=== PATIENT | female | born 1990 | race American Indian/Alaskan Native ===

== ENCOUNTER 2021-06-20 03:23 | Emergency (ER) | payer SELFPAY | END 2021-06-20 05:00 | disposition left against medical advice (07) | LOC: ED 03:23 | DX: R10.9 Unspecified abdominal pain (principal); Z53.21 Procedure and treatment not carried out due to patient leaving prior to being seen by health care provider ==

== ENCOUNTER 2021-07-18 05:53 | Emergency (ER) | payer SELFPAY ==
[2021-07-18 06:08] VITALS: BP 134/84
--- NOTE | 2021-07-18 09:01 | XRay Report ---
CHEST 2 VIEWS INDICATION / CLINICAL INFORMATION: shortness of breath. COMPARISON: None available. FINDINGS: SUPPORT DEVICES: None. HEART / MEDIASTINUM: No significant abnormality. LUNGS / PLEURA: No significant pulmonary or pleural abnormality. No pneumothorax. ADDITIONAL FINDINGS: No significant additional findings. IMPRESSION: 1. No acute findings. Signer Name: Sharif Parisi DO Signed: 07/18/2021 8:57 AM Workstation Name: [id number]
--- NOTE | 2021-07-18 09:07 | Emergency Department Report ---
- General Chief Complaint: Upper Respiratory Infection Stated Complaint: LT SHOULDER/CHEST PAIN x1 DAY Source: patient Mode of arrival: Ambulatory Limitations: No Limitations - History of Present Illness Initial Comments: 28-year-old female presents to the ED with cough, shortness of breath, body ache x5 days. Patient states that she tested positive for COVID on Monday. Patient states she has been taking Tylenol 1 g [id number] for fever relief. Patient denies any chest pain or abdominal pain at present. Patient denies any headache nausea vomiting or blurry vision at present. Patient is alert and oriented x3. No acute distress noted. No ill appearance noted. MD Complaint: cough, nasal congestion Onset/Timin -: days(s) Severity: mild, moderate Severity scale (0 -10): 5 Quality: aching Consistency: intermittent Improves With: nothing Worsens With: nothing Associated Symptoms: denies other symptoms - Related Data Previous Rx's Medication Instructions Recorded Last Taken Type Ibuprofen [Motrin] 800 mg PO Q8HR PRN 15 Days #30 07/18/21 Unknown Rx tablet Allergies Allergy/AdvReac Type Severity Reaction Status Date / Time No Known Allergies Allergy Verified 07/18/21 06:10 ED Review of Systems ROS: Stated complaint: LT SHOULDER/CHEST PAIN x1 DAY Other details as noted in HPI Constitutional: denies: chills, fever Eyes: denies: eye pain, eye discharge, vision change ENT: denies: ear pain, throat pain Respiratory: cough, SOB with exertion. denies: shortness of breath, wheezing Cardiovascular: denies: chest pain, palpitations Endocrine: no symptoms reported Gastrointestinal: denies: abdominal pain, nausea, diarrhea Genitourinary: denies: urgency, dysuria, discharge Musculoskeletal: denies: back pain, joint swelling, arthralgia Skin: denies: rash, lesions Neurological: denies: headache, weakness, paresthesias Psychiatric: denies: anxiety, depression Hematological/Lymphatic: denies: easy bleeding, easy bruising ED Past Medical Hx - Medications Home Medications: Home Medications Medication Instructions Recorded Confirmed Last Taken Type Ibuprofen [Motrin] 800 mg PO Q8HR PRN 15 Days #30 07/18/21 Unknown Rx tablet ED Physical Exam - General Limitations: No Limitations General appearance: alert, in no apparent distress - Head Head exam: Present: atraumatic, normocephalic - Eye Eye exam: Present: normal appearance - ENT ENT exam: Present: mucous membranes moist - Neck Neck exam: Present: normal inspection - Respiratory Respiratory exam: Present: normal lung sounds bilaterally. Absent: respiratory distress - Cardiovascular Cardiovascular Exam: Present: regular rate, normal rhythm. Absent: systolic murmur, diastolic murmur, rubs, gallop - GI/Abdominal GI/Abdominal exam: Present: soft, normal bowel sounds - Extremities Exam Extremities exam: Present: normal inspection - Back Exam Back exam: Present: normal inspection - Neurological Exam Neurological exam: Present: alert, oriented X3 - Psychiatric Psychiatric exam: Present: normal affect, normal mood - Skin Skin exam: Present: warm, dry, intact, normal color. Absent: rash ED Course Vital Signs 07/18/21 07/18/21 07/18/21 06:01 07:43 10:00 Temperature 97.6 F Pulse Rate 96 H 96 H Respiratory 18 18 18 Rate Blood Pressure 134/84 Blood Pressure 134/84 [Right] O2 Sat by Pulse 100 99 100 Oximetry ED Medical Decision Making - EKG Data EKG shows normal: sinus rhythm - EKG Data Interpretation: nonspecific ST-T wave flor - Radiology Data [facility] [address] [place] [address] XRay Report Signed Patient: CARLOS MORTON MR#: [id number] : 08/31/1992 Acct:[id number] Age/Sex: 28 / F ADM Date: 07/18/21 Loc: ED Attending Dr: Ordering Physician: OCTAVIO BOLES Date of Service: 07/18/21 Procedure(s): XR chest routine 2V Accession Number(s): [id number] cc: OCTAVIO BOLES Fluoro Time In Minutes: CHEST 2 VIEWS INDICATION / CLINICAL INFORMATION: shortness of breath. COMPARISON: None available. FINDINGS: SUPPORT DEVICES: None. HEART / MEDIASTINUM: No significant abnormality. LUNGS / PLEURA: No significant pulmonary or pleural abnormality. No pneumothorax. ADDITIONAL FINDINGS: No significant additional findings. IMPRESSION: 1. No acute findings. Signer Name: Sharif Parisi DO Signed: 07/18/2021 8:57 AM Workstation Name: [id number] Transcribed By: LIZANDRO Dictated By: SHARIF PARISI DO Electronically Authenticated By: SHARIF PARISI DO Signed Date/Time: 07/18/21856 DD/ 5 TD/TT: - Medical Decision Making 28-year-old female presents to the ED with cough, shortness of breath, body ache x5 days. Patient states that she tested positive for COVID on Monday. Patient states she has been taking Tylenol 1 g [id number] for fever relief. Patient denies any chest pain or abdominal pain at present. Patient denies any headache nausea vomiting or blurry vision at present. Patient is alert and oriented x3. No acute distress noted. No ill appearance noted. Physical examination is unremarkable. CT 2 view show no abnormality. Patient has a walking O2 sat of 98%. Rechecked the patient is resting quietly quietly and comfortable and feeling better. I discussed the results of diagnostic study, my clinical impression and the plan for further treatment with the patient. Patient agrees with plan and discharge at this present time. All question addressed. I have given the patient instruction regarding a diagnosis ,expectation ,follow- up and return precaution. I explained to the patient that emergent condition may arise and to return to the ED for new worsen and any new persisting condition. I have explained the importance of following up with the primary care physician or referral physician listed below has instructed. The patient verbalized understanding of discharge instruction. Critical care attestation.: If time is entered above; I have spent that time in minutes in the direct care of this critically ill patient, excluding procedure time. ED Disposition Clinical Impression: COVID-19 Disposition: HOME / SELF CARE / HOMELESS Is pt being admited?: No Does the pt Need Aspirin: No Condition: Stable Instructions: COVID-19 Frequently Asked Questions, COVID-19: How to Protect Yourself and Others - CDC, Prevent the Spread of COVID-19 if You Are Sick - CDC Additional Instructions: Return to the ED for any worsening symptom Take medication as prescribed Drink plenty of fluids and stay hydrated Prescriptions: Ibuprofen [Motrin] 800 mg PO Q8HR PRN 15 Days #30 tablet PRN Reason: Pain, Moderate (4-6) Referrals: PRIMARY CARE, [Primary Care Provider] - 3-5 Days [facility] [Provider Group] - 3-5 Days Forms: Work/School Release Form(ED)
--- NOTE | 2021-07-18 14:06 | Electrocardiograph Report ---
[facility] Test Date: 2021-07-18 Test Time: 06:06:09 Pat Name: CARLOS MORTON Department: Room: Gender: F Designer/Writer: MARIA T : 1992-08-31 Requested By: ED DOC Order Number: [id number] Reading MD: Josey Michael Measurements Intervals Mason Rate: 82 P: 77 AK: 144 QRS: 68 QRSD: 96 T: 27 QT: 385 QTc: 450 Interpretive Statements Sinus rhythm Probable left atrial enlargement No previous ECG available for comparison Electronically Signed On 07-18-2021 14:06:23 EDT by Josey Michael
== END 2021-07-18 09:59 | disposition home or self-care (01) ==
LOC: ED 05:53
DX: R05.9 Cough, unspecified (principal); Z20.822 Contact with and (suspected) exposure to COVID-19; Z79.899 Other long term (current) drug therapy
CPT/HCPCS: 71046; 93005; 99283

== ENCOUNTER 2021-08-22 23:00 | Emergency (ER) | payer SELFPAY ==
[2021-08-23 00:04] VITALS: BP 130/80
== END 2021-08-23 01:20 | disposition left against medical advice (07) ==
LOC: ED 23:00
DX: E86.0 Dehydration (principal); Z53.21 Procedure and treatment not carried out due to patient leaving prior to being seen by health care provider
CPT/HCPCS: J3490; J2704